=== PATIENT | male | born 1950 | race Caucasian/White ===

== ENCOUNTER 2018-10-15 09:50 | Inpatient (IN) | payer MEDICARE, MEDICAID ==
[~2018-10-15] VITALS: Ht 170.2 cm; Wt 70.8 kg
[~2018-10-15 09:50] MED LIST: ASPI-1718 PO; BENA5TAB13 PO; CARV6.25 PO; FURO-572 PO; LIP80 PO; MIRT30TA PO; NITR0.4T2 SL; OMEP20TC10 PO; TAMS0.4C96 PO
--- NOTE | 2018-10-15 09:53 | NUR ---
PT BIBA ALS TO BED 10
[2018-10-15 09:56] VITALS: BP 110/66
--- NOTE | 2018-10-15 09:59 | NUR ---
Patient being evaluated by physician at bedside.
[2018-10-15] MEDS ORDERED: NACL 0.9% 2,000 ML IV SCH (10:02)
--- NOTE | 2018-10-15 10:15 | NUR ---
PT MOVED TO ER BED 5 WITH EMT JOVAN AT BEDSIDE. [facility] AT BEDSIDE-ALL BELONGING SENT. RT AT BEDSIDE. LAB AT BEDSIDE UA/UDS SENT TO LAB
[2018-10-15] MEDS ORDERED: SPIR50TA PO (10:26)
[2018-10-15] MEDS ORDERED: TRAM50TA1 PO (10:26)
[2018-10-15] MEDS ORDERED: DILT-135 PO (10:26)
[2018-10-15] MEDS ORDERED: QUET100T PO (10:28)
--- NOTE | 2018-10-15 10:45 | NUR ---
PT PURNIMA GUY FROM [facility] FOR ALTERED MENTAL STATUS. PER [facility] PT DID NOT OPEN HIS DOOR THEREBY CALLING JAGDISH FIELDS TO BREAK INTO HIS ROOM AND FOUND WITH A PATCH OF FENTAYL AND AN EMPTY BOTTLE OF SEROQUIL. PT GCS 8, PT OPENS EYES TO PAIN, MOVEMENT TO PAIN, AND NON-VERBAL AT THIS TIME. VSS. ER MD TO SEE PT. HX; HTN RX; FENTANYL, LASIX, ATROVASTATIN, SPIRONOLACTON, DILTIAZEM --
[2018-10-15] MEDS ORDERED: FENT100T TD (10:46)
[2018-10-15 10:59] LABS: APPEARANCE,URINE HAZY (CLEAR); BILIRUBIN,URINE NEGATIVE (NEGATIVE); BLOOD, URINE NEGATIVE (NEGATIVE); COLOR,URINE YELLOW (YELLOW); LEUKOCYTE ESTERASE ,URINE NEGATIVE (NEGATIVE); NITRITE, URINE NEGATIVE (NEGATIVE); PH,URINE 5.5 (5.0-9.0); UGLUCOSE NEGATIVE (NEGATIVE)
[2018-10-15 11:09] LABS: BASOPHILS % (AUTO) 0.2 % (0.0-2.0); EOSINOPHILS % (AUTO) 0.2 % (0.0-4.0); HEMATOCRIT 43.5 % (36-52); HEMOGLOBIN 14.7 g/dL (12.0-18.0); LYMPHOCYTES % (AUTO) 8.6 % (20.5-51.1); MEAN CORPUSCULAR HEMOGLOBIN 30 pg (27-31); MEAN CORPUSCULAR HGB CONC 34 g/dL (33-37); MEAN CORPUSCULAR VOLUME 88.2 fL (80-94); MONOCYTES # (AUTO) 0.6 K/uL (0.8-1.0); MONOCYTES % (AUTO) 5.2 % (1.7-9.3); NEUTROPHILS # (AUTO) 9.8 K/uL (1.8-7.7); NEUTROPHILS % (AUTO) 85.8 % (42.2-75.2); PLATELET COUNT (AUTO) 279 K/uL (140-450); RED BLOOD CELL COUNT(AUTO) 4.93 MIL/uL (4.20-6.10); RED CELL DISTRIBUTION WIDTH 13.8 % (11.6-13.7); WHITE BLOOD COUNT (AUTO) 11.4 K/uL (4.8-10.8)
--- NOTE | 2018-10-15 11:12 | NUR ---
ABG RESULTS GIVEN TO PHYSICIAN REQUESTS PT BE PLACED ON OXYGEN DELIVERY DEVICE.
--- NOTE | 2018-10-15 11:18 | NUR ---
PT AT RADIAOLOGY AT THIS TIME
[2018-10-15 11:25] LABS: BARBITURATE, URINE NEGATIVE ng/ml (NEG <=200); BENZODIAZEPINE, URINE NEGATIVE ng/mL (NEG <=200); CANNABINOID, URINE NEGATIVE ng/mL (NEG <=50); COCAINE, URINE NEGATIVE ng/mL (NEG <=300); OPIATE, URINE NEGATIVE ng/mL (NEG <=2000); PHENCYCLIDINE SCREEN,URINE NEGATIVE ng/mL (NEG <=25)
[2018-10-15 11:27] LABS: PROTHROMBIN TIME 10.4 secs (10.8-13.4)
[2018-10-15 11:34] LABS: ALBUMIN 3.8 g/dL (3.4-5.0); ANION GAP 16.3 (8-16); CARBON DIOXIDE 25.4 mmol/L (21-32); POTASSIUM 3.7 mmol/L (3.5-5.1); TOTAL BILIRUBIN 0.4 mg/dL (0.0-1.0)
[2018-10-15 11:42] LABS: ACETAMINOPHEN < 0.5 ug/ml (10-30)
[2018-10-15] MEDS ORDERED: AZITHROMYCIN 500 MG in DEXTROSE 5% 250 ML IV ONE (11:50)
[2018-10-15] MEDS ORDERED: NACL 0.9% 1,000 ML IV SCH (11:50)
[2018-10-15] MEDS ORDERED: PIPERACILLIN/TAZOBACTAM 3.375 GM in DEXT 5% MINI-BAG PLUS 50 ML IV ONE (11:50)
[2018-10-15 11:54] LABS: ACETONE, SERUM NEGATIVE (NEGATIVE)
[2018-10-15] MEDS ORDERED: PIPERACILLIN/TAZOBACTAM 3.375 GM VIAL IV ONE (12:10)
[2018-10-15] MEDS ORDERED: AZITHROMYCIN 500 MG INJ VIAL IV ONE (12:10)
[2018-10-15] MEDS: IPRATROPIUM 0.02% 0.5 MG/2.5 ML NEBU INH SCH (13:00)
[2018-10-15] MEDS: ALBUTEROL 0.083% 2.5 MG/3 ML NEBU INH SCH (13:00)
[2018-10-15] MEDS ORDERED: ALBUTEROL 0.083% 2.5 MG/3 ML NEBU INH PRN (13:25)
[2018-10-15] MEDS ORDERED: ONDANSETRON 4 MG/2 ML VIAL IVP PRN (13:25)
[2018-10-15] MEDS ORDERED: ACETAMINOPHEN 325 MG TAB PO PRN (13:25)
--- NOTE | 2018-10-15 13:55 | NUR ---
Patient will be admitted to care of [facility]. Admited to ICU VIA GURNEY WITH VSS. Will go to room ICU-6. Belongings list completed. Report to ABIGAIL SERRATO.
[2018-10-15 14:00] VITALS: BP 89/56
[2018-10-15] MEDS: DEXT 5% /NACL 0.9% 1,000 ML IV SCH (14:00)
--- NOTE | 2018-10-15 14:00 | NUR ---
RECEIVED PT TRANSFERRED FROM ED VIA [facility], OBTAINED REPORT FORM AMA YATES AT BEDSIDE, PT IS LETHARGIC, UNABLE TO FOLLOW COMMANDS, PERRL, VSS, FLACC 0, NO S/S OF DISTRESS, CLEAR LUNG SOUNDS ADONIS. ON O2 AT 2L VIA NC, O2 SAT 98%, REGULAR HR, ST ON FOREST FIRE PREVENTION MANAGER, SOFT ABDOMEN WITH ACTIVE BOWEL SOUNDS, INCONTINENT WITH B&B'S AT THIS TIME, SEVERE WEAKNESS TO ALL EXTREMITIES NOTED, SKIN IS INTACT, WARM AND DRY TO TOUCH, IV SITE TO LEFT FOREARM, 22GA, PATENT, RUNNING NS BOLUS. HOB ELEVATED TO 30 DEGREES, POSITION CHANGED FOR COMFORT, SAFETY MEASURES IN PLACE, WILL CONTINUE TO MONITOR.
--- NOTE | 2018-10-15 15:30 | NUR ---
DR. GIVENS CAME IN TO SEE PT AT BEDSIDE, UPDATED PT'S CONDITION TO PT'S POWER VENEER JOINTER KARLY PIMENTEL, WILL FOLLOW UP WITH NEW ORDERS.
--- NOTE | 2018-10-15 15:50 | NUR ---
CALLED [facility] FOR ADVISE, UPDATED PT'S CONDITION, RECOMMENDED TO CONTINUE MONITOR.
[2018-10-15 16:00] VITALS: BP 97/58
--- NOTE | 2018-10-15 16:15 | NUR ---
PT IS ASLEEP IN BED, RESPOND TO PAINFUL STIMULI, BUT UNABLE TO OPEN EYES, OR FOLLOW COMMANDS, NO S/S OF DISTRESS, VSS, FLACC 0. POSITION CHANGED FOR OFF LOAD PRESSURE.
[2018-10-15 18:00] VITALS: BP 94/60
--- NOTE | 2018-10-15 18:00 | NUR ---
NO CHANGE OF CONDITION AT THIS TIME, VSS, FLACC 0, POSITION CHANGED FOR OFF LOAD PRESSURE.
--- NOTE | 2018-10-15 19:10 | NUR ---
REPORT GIVEN TO NEWS CAMERAMAN NURSE FOR CONTINUE OF CARE, PT IS IN STABLE CONDITION AT THIS TIME.
--- NOTE | 2018-10-15 19:11 | NUR ---
RECEIVED REPORT FROM AM SHIFT. PT ALOC. SLEEPING AT THIS TIME. ON 5150 HOLD. NONRESPONSIVE TO VERBAL OR TACTILE STIMULI. LUNG SOUNDS CLEAR. ON NASAL CANNULA 2LPM. SR ON MONITOR. NPO AT THIS TIME. BOWEL SOUNDS HYPOACTIVE. BLADDER NONDISTENDED. L FA 22G. DRESSING INTACT. NO SIGNS OF ACUTE DISTRESS AT THIS TIME. BED IN LOWEST POSITION. SR UP X4. WILL CONTINUE TO MONITOR.
--- NOTE | 2018-10-15 19:30 | NUR ---
DR. HERRERA AT BEDSIDE EVALUATING PT. UPDATED ON PTS CURRENT CONDTION. NEW ORDER OF NARCAN 0.4MG IVP ORDERED. WILL CONTINUE TO FOLLOW UP ANY ADDITIONAL ORDERS.
[2018-10-15 20:00] VITALS: BP 95/62
[2018-10-15] MEDS ORDERED: NALOXONE 0.4 MG/ML VIAL IVP ONE (21:00)
--- NOTE | 2018-10-15 21:20 | NUR ---
RECEIVED A CALL FROM [facility], THEY ARE WANTING AN UPDATE REGARDING THE PT AND RECOMMENDS AN EKG TO BE TAKEN D/T LONG QTC WHILE PT WAS IN ER. WILL FOLLOW-UP WITH THE ATTENDING PHYSICIAN.
--- NOTE | 2018-10-15 21:26 | NUR ---
DR. GIVENS WAS PAGED AT 2124 TO INFORM REGARDING THE RECOMMENDATION OF POISON CONTROL. DR. GIVENS CALLED BACK AT 2126 AND INFORMATION WAS COMMUNICATED. OKAY TO CARRY OUT RECOMMENDATION BY POISON CONTROL PER DR. GIVENS.
--- NOTE | 2018-10-15 21:31 | NUR ---
RT NOTIFIED REGARDING NEW ORDER FOR EKG
--- NOTE | 2018-10-15 21:47 | NUR ---
EKG AT BEDSIDE AT THIS TIME
[2018-10-15 21:49] LABS: CREATINE KINASE MB 1.8 ng/mL (0-3.6)
[2018-10-15 22:00] VITALS: BP 132/68
[2018-10-16] VITALS: BP 112/62
--- NOTE | 2018-10-16 00:06 | NUR ---
PT ASLEEP AT THIS TIME. RESPONDS TO TACTILE STIMULI
[2018-10-16] MEDS: DEXT 5% /NACL 0.9% 1,000 ML IV SCH ×3 (00:54→20:01)
[2018-10-16 02:00] VITALS: BP 92/65
--- NOTE | 2018-10-16 02:44 | NUR ---
PT AWAKE AT THIS TIME. EPISODES OF CONFUSION NOTED
--- NOTE | 2018-10-16 03:37 | NUR ---
PT AWAKE. CONTINUES TO PRESENT CONFUSION AND ALTERED LEVELS OF CONSCIOUSNESS.
[2018-10-16 04:19] VITALS: BP 117/65
--- NOTE | 2018-10-16 05:32 | NUR ---
[facility] PROVIDED AT THIS TIME.
[2018-10-16 06:00] VITALS: BP 122/68
--- NOTE | 2018-10-16 06:08 | NUR ---
LAB AT BEDSIDE AT THIS TIME FOR AM DRAWS
[2018-10-16 06:51] LABS: ALBUMIN 3.1 g/dL (3.4-5.0); ANION GAP 15.2 (8-16); BASOPHILS % (AUTO) 0.2 % (0.0-2.0); CARBON DIOXIDE 25.5 mmol/L (21-32); CREATININE 1.1 mg/dL (0.7-1.3); EOSINOPHILS # (AUTO) 0.1 K/uL (0-0.4); EOSINOPHILS % (AUTO) 1.2 % (0.0-4.0); HEMATOCRIT 40.7 % (36-52); HEMOGLOBIN 13.6 g/dL (12.0-18.0); LYMPHOCYTES % (AUTO) 20.9 % (20.5-51.1); MEAN CORPUSCULAR HEMOGLOBIN 30 pg (27-31); MEAN CORPUSCULAR HGB CONC 34 g/dL (33-37); MEAN CORPUSCULAR VOLUME 88.5 fL (80-94); MONOCYTES # (AUTO) 0.7 K/uL (0.8-1.0); MONOCYTES % (AUTO) 7.7 % (1.7-9.3); NEUTROPHILS # (AUTO) 6.6 K/uL (1.8-7.7); PLATELET COUNT (AUTO) 264 K/uL (140-450); POTASSIUM 3.7 mmol/L (3.5-5.1); RED CELL DISTRIBUTION WIDTH 13.7 % (11.6-13.7); TOTAL BILIRUBIN 0.4 mg/dL (0.0-1.0); WHITE BLOOD COUNT (AUTO) 9.5 K/uL (4.8-10.8)
--- NOTE | 2018-10-16 07:20 | NUR ---
ENDORSED CARE TO INCOMING SHIFT FOR CONTINUITY OF CARE.
--- NOTE | 2018-10-16 07:20 | NUR ---
RECEIVED PT FROM PM NURSE, PT AWAKE,ALERT, ABLE TO ANSWER QUESTIONS. ON 5150 HOLD. LUNG SOUNDS CLEAR. SR ON MONITOR.NO SIGNS OF ACUTE DISTRESS AT THIS TIME. NPO AT THIS TIME. BOWEL SOUNDS HYPOACTIVE. L FA 22G RUNNING D5NS AT 100 MLS/HR. BED IN LOWEST POSITION. SR UP X4. WILL CONTINUE TO MONITOR.
--- NOTE | 2018-10-16 07:30 | NUR ---
PATIENT HAS BEEN SCREENED AND CATEGORIZED HIGH NUTRITION RISK. PATIENT WILL BE SEEN WITHIN 1-2 DAYS OF ADMISSION. 10/16/[address]
[2018-10-16 08:00] VITALS: BP 136/74
--- NOTE | 2018-10-16 09:10 | NUR ---
STEWART FROM [facility] [phone] CALLED, UPDATED PT'S CONDITION. PER STEWART, THIS CASE IS CLOSED.
--- NOTE | 2018-10-16 10:06 | NUR ---
PT'S SISTER WHO HAS THE POWER OF SHUTTLE BUS DRIVER PRESENT TO BEDSIDE, UPDATED PT'S CONDITION.
--- NOTE | 2018-10-16 10:30 | NUR ---
SPOKE TO KARLY. SHE AGREES TO THE PSYCH. RECOMMENDATION THAT PT. NEEDS IN PT. PSYCHIATRIC TREATMENT.
[2018-10-16] MEDS: ASPIRIN 81 MG TAB.CHEW PO SCH (10:41)
[2018-10-16] MEDS: ENOXAPARIN 40 MG/0.4 ML SYR SUBQ SCH (10:43)
[2018-10-16] MEDS ORDERED: PROBIOTIC SCREEN 1 EA MISC MC PRN (10:50)
--- NOTE | 2018-10-16 11:21 | NUR ---
PT IS CONFUSED, TRIED TO GET OUT BED AND REACHED HIS HANDS TO AIR, MUMBLING, UNABLE TO UNDERSTAND PT. REORIENTED PT AND WILL MONITOR PATIENT CLOSELY.
--- NOTE | 2018-10-16 12:15 | NUR ---
PT'S MEDICAL RECORDS FAXED TO [facility].
--- NOTE | 2018-10-16 12:30 | NUR ---
VERIFIED WITH PATRIA FROM [facility] THAT THEY GOT THE MEDICAL RECORDS OF PT.
--- NOTE | 2018-10-16 13:01 | NUR ---
PLEASE REFER TO NUTRITION ASSESSMENT UNDER CARE ACTIVITY FOR ESTIMATED NUTRITIONAL NEEDS. RD RECOMMENDATIONS: 1.RECOMEMND CONTINUE WITH CURRENT DIET ORDER. 2.ONCE PT IS MORE ALERT AND ORIENTED AND IF PO INTAKE <50%, REC ADDING ONS. 3. RD WILL F/U 2-3 DAYS; HIGH RISK. DIANA BROWN, RD
--- NOTE | 2018-10-16 14:33 | NUR ---
pt's family at bedside talking to pt.
--- NOTE | 2018-10-16 15:28 | NUR ---
until now, pt had total urine output 100mls. Addendum: 10/16/18 at 1752 by Enrique Calvillo RN 1100 MLS URINE INSTEAD OF 100 MLS
[2018-10-16 16:00] VITALS: BP 138/84
--- NOTE | 2018-10-16 16:20 | NUR ---
PT TALKING TO HIMSELF , SOUNDS LIKE FIGHTING WITH SOMEONE.
[2018-10-16] MEDS: HYDROcodone/APAP 10/325 MG 1 TAB TAB PO PRN (16:33)
[2018-10-16] MEDS: LORazepam 1 MG TAB PO PRN (16:33)
--- NOTE | 2018-10-16 17:52 | NUR ---
SERVED PT FOOD, FED PT.
--- NOTE | 2018-10-16 19:09 | NUR ---
REPORT GIVEN TO PM NURSE
[2018-10-16 19:18] LABS: CREATINE KINASE MB 2.3 ng/mL (0-3.6)
--- NOTE | 2018-10-16 19:20 | NUR ---
RECEIVED REPORT FROM DAY SHIFT RN. NO ACUTE DISTRESS. PT JACI POINTING @ CEILIING. WILL CONTINUE TO OBSERVE.
--- NOTE | 2018-10-16 19:31 | NUR ---
PT WAS INCREASINGLY BECOMING COMBATIVE TOWARDS STAFF. PT WAS SHOUTING AND CUSSING AT THE NURSES. PT PEED HIMSELF IN BED. NOT WANTING TO COOPERATE WITH STAFF.
--- NOTE | 2018-10-16 19:34 | NUR ---
CALLED [facility] TO EDUAR HERRERA, FOR TONIGHT DR. RIVERS WAS ON-CALL. RECEIVEDA CALL FROM DR. RIVERS AT 1934, INFORMED HIM REGARDING THE CURRENT PT'S CONDITION AND RECEIVED NEW ORDERS.
--- NOTE | 2018-10-16 19:45 | NUR ---
OFFERED TO CHANGE LINENS AND ASSIST WITH [facility]. PT REFUSING @ THIS TIME. PT ALERT TO HIS NAME UNAWARE OF SURROUNDINGS. PT CONTINUES TO MUMBLE TO HIMSELF. DENIES SOB, NO S/S OF N/V/D. PT INCONTINENT, SKIN WARM PINK DRY INTACT. BED LOCKED IN LOWEST POSITION, BED ALARM ON.
[2018-10-16] MEDS ORDERED: MORPHINE SULFATE 2 MG/ML SYR ONE (19:50)
[2018-10-16] MEDS: MORPHINE SULFATE 2 MG/ML SYR IVP PRN (19:57)
--- NOTE | 2018-10-16 20:40 | NUR ---
PAGED DR RIVERS; NOTIFIED PT CONFUSED SWINGING EXTREMITIES TOWARD STAFF, AGITATED RESTLESS. NEW ORDER GIVEN FOR PRN HALDOL.
[2018-10-16] MEDS: HALOPERIDOL IM 5 MG/ML VIAL IVP PRN (20:54)
--- NOTE | 2018-10-16 21:30 | NUR ---
PT HAS EYES CLOSED, NO S/S OF ACUTE DISTRESS. WILL CONTINUE TO OBSERVE.
[2018-10-17 01:00] VITALS: BP 117/79
--- NOTE | 2018-10-17 01:00 | NUR ---
TRANSFERRED PT TO [facility], REPORT GIVEN TO ALISE SERRATO
--- NOTE | 2018-10-17 01:00 | NUR ---
RECEIVED REPORT FROM [facility] ICU NURSE FOR CONTINUITY OF CARE. PATIENT AWAKE AOX1 TO SELF. RESPIRATION EVEN UNLABORED ON ROOM AIR. SKIN IS WARM AND DRY. IV PATENT AND INTACT. VITALS: BP 117/79 SPO2 98% RR 18 P 85 T 98. PATIENT CONDITION STABLE. DENIES PAIN. PLAN OF CARE WAS DISCUSSED. ALL SAFETY MEASURES ARE IN PLACE. BED IS AT LOW POSITION. PATIENT WITH 1 TO 1 SITTER. WILL CONTINUE TO MONITOR.
[2018-10-17] MEDS: HALOPERIDOL IM 5 MG/ML VIAL IVP PRN (01:01)
[2018-10-17] MEDS ORDERED: HALOPERIDOL IM 5 MG/ML VIAL ONE (01:03)
--- NOTE | 2018-10-17 02:09 | NUR ---
CHECKED PATIENT. PATIENT MUMBLING POINTING AT CEILING. NO DISTRESS NOTED. SITTER AT THE BEDSIDE. WILL CONTINUE TO MONITOR
--- NOTE | 2018-10-17 04:00 | NUR ---
CHECKED PATIENT. PATIENT AWAKE CONTINUES TO MUMBLE TO HIMSELF. DENIES PAIN. SITTER AT THE BEDSIDE. WILL CONTINUE TO MONITOR.
--- NOTE | 2018-10-17 05:34 | NUR ---
Still no beds found for placement , will endorsed to AM shift to continue to look for beds.
[2018-10-17] MEDS: IPRATROPIUM 0.02% 0.5 MG/2.5 ML NEBU INH SCH ×3 (07:00→18:49)
[2018-10-17] MEDS: ALBUTEROL 0.083% 2.5 MG/3 ML NEBU INH SCH ×3 (07:00→18:49)
--- NOTE | 2018-10-17 07:20 | NUR ---
ENDORSED PATIENT TO DAY SHIFT NURSE FOR CONTINUITY OF CARE. PATIENT STABLE AT THIS TIME.
--- NOTE | 2018-10-17 07:25 | NUR ---
RECEIVED HAND OFF REPORT FROM PRINTMAKER NURSE. PT IS STABLE IN BED AT THIS TIME WILL REVIEW PLAN OF CARE AND CONTINUE TO MONITOR PT
--- NOTE | 2018-10-17 07:40 | NUR ---
Report given to nurse Gage.
--- NOTE | 2018-10-17 07:42 | NUR ---
RECEIVED BEDSIDE REPORT FROM KANDI SERRATO FOR CONTINUITY OF CARE. PATIENT SLEEPING IN BED WITH LIGHT SNORING. PT IS VERY LETHARGIC. VITALS STABLE. WITHDRAWS TO LIGHT PAINFUL STIMULI. UNABLE TO ASSESS MENTAL STATUS AT THIS TIME. RESPIRATIONS EVEN UNLABORED ON ROOM AIR. COARSE LUNG SOUNDS BILATERALLY. HEART REGULAR RATE AND RHYTHM. PATIENT IN BED WITHOUT ANY BLANKETS COVERING. SKIN INTACT, DRY, AND WARM-EXCEPT FOR LOWER EXTREMITIES ARE COOL TO TOUCH. PEDAL PULSES 1+ BILATERALLY. CAP REFILL 3 SECONDS. BLE SENSATION INTACT. PT WITHDRAWS TO CAP REFILL ASSESSMENT. COVERED PATIENT WITH TWO WARM BLANKETS AND WILL CONTINUE TO MONITOR. IV PATENT AND INTACT, INFUSING IVF PER MD ORDERS. PLAN OF CARE WAS DISCUSSED. ALL SAFETY MEASURES ARE IN PLACE. BED IS AT LOW POSITION. SITTER AT BEDSIDE FOR SUICIDAL PRECAUTIONS. WILL CONTINUE TO MONITOR.
[2018-10-17 08:00] VITALS: BP 130/67
[2018-10-17] MEDS: ASPIRIN 81 MG TAB.CHEW PO SCH (09:16)
[2018-10-17] MEDS: ENOXAPARIN 40 MG/0.4 ML SYR SUBQ SCH (09:21)
[2018-10-17] MEDS: DEXT 5% /NACL 0.9% 1,000 ML IV SCH ×3 (09:30→19:17)
--- NOTE | 2018-10-17 09:30 | NUR ---
PATIENT IS AWAKE NOW. SET UP BREAKFAST TRAY. PT NEEDS ASSISTANCE WITH FEEDING. AOX4 AT THIS MOMENT. ABLE TO STATE NAME, , MONTH & YEAR. KNOWS HE IS AT HOSPITAL ALTHOUGH DOES NOT KNOW NAME OF HOSPITAL. PT ASKED FOR NAME OF THIS HOSPITAL AND I INFORMED HIM THAT THIS IS [facility].
--- NOTE | 2018-10-17 10:25 | NUR ---
POWER OF ENGINE DISPATCHER (KARLY) AT BEDSIDE TO SPEAK WITH PATIENT. DR. GIVENS HAS DISCUSSED PLAN OF CARE WITH POA AT BEDSIDE AND ANSWERED ALL QUESTIONS REGARDING CARE.
--- NOTE | 2018-10-17 12:15 | NUR ---
Pt asleep in bed. Pt opens eyes to name. Lunch tray served & informed him that lunch is ready. Assisted pt to upright sitting position with HOB at 45-65 degree angle. Overbed table positioned over pt. Pt said ok then went back to sleep. Sitter at bedside.
--- NOTE | 2018-10-17 12:32 | NUR ---
PT SITTING UP IN BED, WATCHING TV. NO C/O PAIN OR DISCOMFORT. WILL CONTINUE TO MONITOR.
--- NOTE | 2018-10-17 13:20 | NUR ---
RT AT PT BEDSIDE. RT ADMINISTERING BREATHING TREATMENT TO PT.
--- NOTE | 2018-10-17 13:32 | NUR ---
PATIENT ON ROOM AIR, PULSE OX SAT 94%. SCHEDULED BREATHING TREATMENT ADMINISTERED. TOLERATED TX WELL, NO ADVERSE SIDE EFFECTS. NO RESPIRATORY DISTRESS NOTED. WILL CONTINUE TO MONITOR.
[2018-10-17] MEDS: HYDROcodone/APAP 10/325 MG 1 TAB TAB PO PRN ×3 (14:59→23:54)
--- NOTE | 2018-10-17 14:59 | NUR ---
ADMINISTERED NORCO FOR PT C/O PAIN- SEE PAIN ASSESSMENT.
[2018-10-17 16:00] VITALS: BP 112/51
--- NOTE | 2018-10-17 16:40 | NUR ---
PT SLEEPING IN BED, RESPIRATIONS EVEN AND UNLABORED. ALL SAFETY PRECAUTIONS IN PLACE, WILL CONTINUE TO MONITOR.
--- NOTE | 2018-10-17 18:11 | NUR ---
PER LIAISON PLANNER FROM [facility], PATIENT DOES NOT HAVE MEDICAL AND IS SELF-PAY. THEY WILL NOT ACCEPT PATIENT.
--- NOTE | 2018-10-17 19:19 | NUR ---
ENDORSED POC TO SENIOR ANDROID SOFTWARE ENGINEER REMOTE SENSING RESEARCH SCIENTIST DANETTE. PT IN STABLE CONDITION.
--- NOTE | 2018-10-17 19:20 | NUR ---
Patient's Plan of Care was discussed and reviewed with CITY MAGISTRATE: DANETTE GRAF
--- NOTE | 2018-10-17 19:20 | NUR ---
RECD. RESTING IN BED, AWAKE, A/OX3. RESPIRATION EVEN AND UNLABORED. IV OF D5 NS AT 100 ML/HR INFUSING, LEFT WRIST G20. HAD BM IN BED, CLEANSED AND GOWN AND BEDDINGS CHANGED. REORIENTED TO HOSPITAL SETTING. STATED HE HAS NO PLAN OF OVERDOSING AGAIN, HAVE DONE IT DUE TO HIS DRINKING ALCOHOL, AFTER HE HAD STOPPED FOR FOUR YEARS, JUST DRINK ALCOHOL BECAUSE OF HIS DEPRESSION. PLAN OF CARE FOR THE SHIFT DISCUSSED. VERBALIZED UNDERSTANDING. PAIN IN THE NECK DECREASING /10, WAS MEDICATED BY AM NURSE. REPOSITIONED IN BED FOR COMFORT. WILL CONTINUE TO MONITOR.
[2018-10-17] MEDS: LORazepam 1 MG TAB PO PRN (20:50)
--- NOTE | 2018-10-17 20:50 | NUR ---
WITH ANXIETY MEDICATED WITH ATIVAN 2 MG. PO.
--- NOTE | 2018-10-17 21:02 | NUR ---
Spoke to Duyen at [facility] , they are reviewing the packet , will notify Josseline gut snatcher nurse if placement is found.
--- NOTE | 2018-10-17 21:50 | NUR ---
NO ANXIETY NOTED, RESTING QUIETLY IN BED. IV INFILTRATED, WILL INSERT A NEW IV.
[2018-10-18] VITALS: BP 115/62
--- NOTE | 2018-10-18 | NUR ---
NEW IV LINE INSERTED AT THE LEFT HAND G22.
--- NOTE | 2018-10-18 00:30 | NUR ---
AMBULATED TO THE BR, GAIT WEAK AND SHAKY. HAD BM AND VOIDED. ASSISTED BACK TO BED, SAFETY MAINTAINED.
[2018-10-18] MEDS: IPRATROPIUM 0.02% 0.5 MG/2.5 ML NEBU INH SCH ×4 (00:58→19:47)
[2018-10-18] MEDS: ALBUTEROL 0.083% 2.5 MG/3 ML NEBU INH SCH ×4 (00:58→19:47)
--- NOTE | 2018-10-18 03:18 | NUR ---
STILL AWAKE, NO AGITATION NOTED.
--- NOTE | 2018-10-18 04:20 | NUR ---
AGITATED, IN PAIN /. GET OUT OF BED AND TRIED TO GO AROUND THE BED TRYING TO LOOK FOR HIS EYE GLASSES.WANTS TO GO HOME.
[2018-10-18] MEDS: MORPHINE SULFATE 2 MG/ML SYR IVP PRN ×2 (04:35→23:32)
--- NOTE | 2018-10-18 04:35 | NUR ---
MEDICATED WITH MORPHINE 2 MG. IVP BY AMA MAYORGA.
--- NOTE | 2018-10-18 05:05 | NUR ---
NO AGITATION NOTED, RESTING COMFORTABLY IN BED.
--- NOTE | 2018-10-18 07:00 | NUR ---
RESTLESS, WANTS TO GO HOME. EXPLAINED HE HAS TO WAIT FOR THE DOCTOR TO MAKE ROUNDS. MOST OF THE TIME AWAKE DURING SHIFT. NO SUICIDAL IDEATION NOTED.
--- NOTE | 2018-10-18 07:05 | NUR ---
CONDITION REMAIN STABLE. SAFETY MAINTAINED DURING SHIFT. ENDORSED TO AM SHIFT NURSE FOR CONTINUITY OF CARE.
--- NOTE | 2018-10-18 07:06 | NUR ---
GOT BEDSIDE REPORT FROM AMA SAMANIEGO. PATIENT ON MED SURGE AND STANDARD PRECAUTIONS. PATIENT AAOX2. SACRAL REDNESS. FALL RISK PROTOCOL IN PLACE. SIGNS POSTED, YELLOW GOWN, YELLOW SOCKS. IV ON L HAND 22 G INFUSING D5 1/2 NS AT 100. IV ASYMPTOMATIC PATENT AND INTACT. PATIENT ON 5150 HOLD, 1:1 SITTER AT BEDSIDE. BED IN LOW POSITION, CALL LIGHT WITHIN REACH, SIDE RAILS X 2UP. WILL CONTINUE TO MONITOR. Addendum: 10/18/18 at 0749 by Emily Reeves RN DOCUMENTED UNDER WRONG LOGIN. [facility]
--- NOTE | 2018-10-18 07:58 | NUR ---
AWAKE AND ALERT NO APPARENT SOB NOTED GOOD CHEST RISE PATIENT WITH BREAKFAST TRAY AT THIS TIME DIVISION TRAFFIC SUPERINTENDENT TO ATTEMPT HHN THERAPY AT A LATER TIME
[2018-10-18 08:00] VITALS: BP 136/63
[2018-10-18] MEDS: ENOXAPARIN 40 MG/0.4 ML SYR SUBQ SCH (09:00)
[2018-10-18] MEDS: ASPIRIN 81 MG TAB.CHEW PO SCH (09:25)
--- NOTE | 2018-10-18 09:35 | NUR ---
PAGED DR. JIN REGARDING RENEWAL OF 5150 HOLD. WAITING FOR CALL BACK.
--- NOTE | 2018-10-18 09:40 | NUR ---
RECEIVED CALL FROM RAJI FROM [facility] FAX [phone]. SHE STATED TO FAX THE NEW 2387 HOLD TO THIS FAX NUMBER. INFORMED HER I AM WAITING FOR CALL BACK FROM DR. JIN.
[2018-10-18] MEDS: DEXT 5% /NACL 0.9% 1,000 ML IV SCH ×2 (11:36→23:21)
--- NOTE | 2018-10-18 11:42 | NUR ---
PATIENT SITTING ON SIDE OF BED. NO DISTRESS NOTED, ON ROOM AIR.
--- NOTE | 2018-10-18 13:00 | NUR ---
PATIENT LAYING COMFORTABLY IN BED.
--- NOTE | 2018-10-18 15:15 | NUR ---
5063 FORM FAXED TO [facility] [phone]
[2018-10-18 16:00] VITALS: BP 142/82
--- NOTE | 2018-10-18 16:37 | NUR ---
FRIEND AT BEDSIDE. ON ROOM AIR, NO DISTRESS NOTED. WILL CONTINUE TO MONITOR
--- NOTE | 2018-10-18 19:20 | NUR ---
GAVE REPORT TO AMA TOSCANO. PATIENT ENDORSED IN STABLE CONDITION, SITTER IN PLACE.
[2018-10-18 20:00] VITALS: BP 128/72
--- NOTE | 2018-10-18 20:30 | NUR ---
RECEIVED REPORT FORM SUMMER RN NIGHTSHIFT NURSE DUE TO CHANGE OF ASSIGNMENT, PT SITTING UP IN BED NO S/S OF PAIN OR DISTRESS NOTED. IV SITE 22 GUAGE ON LEFT HAND RUNNING 1/2 NS AT 100. PT ATE ABOUT 50% OF MEAL.
--- NOTE | 2018-10-18 20:30 | NUR ---
PATIENT LEFT TO [facility] [facility]. PATIENT REFUSED TO SIGN D/C PAPERWORK, PUT "UNABLE TO SIGN" TO DOCUMENTATION CHARGE NURSE AWARE, PATIENT LEFT VIA [facility] PATIENT STABLE. Addendum: 10/18/18 at 2042 by Robina Lala RN WRONG PATIENT DISREGARD
--- NOTE | 2018-10-18 20:30 | NUR ---
ENDORSED PATIENT TO ENGINE EMISSION TECHNICIAN NURSE QUE, PATIENT STABLE.
--- NOTE | 2018-10-18 20:43 | NUR ---
At this time there are no vacancy at the following facilities [facility], [facility], [facility] Jumana SERRATO made aware
[2018-10-18] MEDS ORDERED: ESCITALOPRAM 20 MG TAB PO SCH (21:00)
--- NOTE | 2018-10-18 21:00 | NUR ---
PT SITTING IN BED QUIETLY, GIVEN ORDERED LEXAPRO , V/S FOLLOWS T 97.9 P 82 R 18 B/P 128/72 02 95% ON ROOM AIR. PT DENIES PAIN AT THIS TIME.
--- NOTE | 2018-10-18 21:30 | NUR ---
PT ESCORTED TO TO TOILET AND BACK AND THEN SETTLED INTO BED TO SLEEP.
--- NOTE | 2018-10-18 21:44 | NUR ---
PT SLEEPING SOUNDLY IN BED ALL FALLS PRECAUTIONS IN PLACE.
--- NOTE | 2018-10-18 23:40 | NUR ---
PT C/O 02/02 PAIN IN NECK AND BACK, GIVEN MORPHINE 2MG/1ML IVP MORPHINE ORDERED.
[2018-10-19] VITALS: BP 114/63
[2018-10-19] MEDS: IPRATROPIUM 0.02% 0.5 MG/2.5 ML NEBU INH SCH ×4 (00:55→19:28)
[2018-10-19] MEDS: ALBUTEROL 0.083% 2.5 MG/3 ML NEBU INH SCH ×4 (00:56→19:28)
--- NOTE | 2018-10-19 01:00 | NUR ---
PT IN BED, RESPIRATORY AT BEDSIDE GIVEN ORDERED NEB TREATMENT.
--- NOTE | 2018-10-19 02:05 | NUR ---
PT IN BED SLEEPING ALL FALLS PRECAUTIONS IN PLACE. CALL NARAYANAN IN REACH AND D5N/S RUNNING AT 100MLS/HR.
[2018-10-19] MEDS: HYDROcodone/APAP 10/325 MG 1 TAB TAB PO PRN (03:27)
--- NOTE | 2018-10-19 03:43 | NUR ---
PT ASSISTED TO TOILET AND BACK, ALSO HAD BM, LINENS CHANGED, PT REQUEST NORCO FOR MODERATE PAIN IN BACK AND NECK. ALL OTHER REQUESTS ATTENDED BY STAFF.
--- NOTE | 2018-10-19 05:30 | NUR ---
PT ROOM CHANGED FROM 108A TO 109A WITH BELONGINGS FROM ROOM 108A. PT V/S FOLLOWS T 98.9 P 67 R 18 B/P 117/57 02 90% ON ROOM AIR. PT RECEIVED CALL FROM KARLY PARMAR. SHE SAID SHE WILL BE HERE IN LATE MORNING. PT ESCORTED TO TOILET AND BACK, ALL FALLS PRECAUTIONS IN PLACE.
--- NOTE | 2018-10-19 05:55 | NUR ---
IV SITE ON LEFT HAND 22GUAGE IS NOTED A LITTLE PUFFY AND PT C/O OF PAIN. IV SITE TAKEN OUT AND NEW SITE PROVIDED TO RIGHT HAND 22G. IV SITE INTACT AND FLUSHED PATENT. IV FLUIDS ATTACHED AND RUNNING D5NS AT 100MLS/HR.
[2018-10-19 05:59] VITALS: BP 117/57
--- NOTE | 2018-10-19 07:26 | NUR ---
PT ESCORTED TO TOILET AND BACK THEN SETTLED INTO BED, RT GIVING PT NEB TREATMENT AT BEDSIDE GAVE REPORT TO NY SERRATO DAYSHIFT NURSE AT BEDSIDE, PT IN STABLE CONDITION.
--- NOTE | 2018-10-19 07:30 | NUR ---
RECEIVED PT FROM SCHOOL BUS MECHANIC NURSE, QUE, PT IS AWAKE AND IS HAVING A BREATHING TX NOW, RT ON THE BEDSIDE, 1:1 SITTER ON THE BEDSIDE WELL, PT HAS AN IV LINE ON THE RT HAND G.22 WITH D5NS INFUSING AT 100ML/HR, INTACT AND PATENT, PT DENIES ANY PAIN AND NO FEELING OF ANXIETY, NO SIGN OF DISTRESS NOTED AND WILL MONITOR PT.
--- NOTE | 2018-10-19 07:45 | NUR ---
PT IS AWAKE AND VITAL SIGNS CHECKED AND RESULT IS BP IS118/61, PULSE IS 79, O2 SATURATION IS 95%, TEMPERATURE IS 98.2 AND RESPIRATION IS 16/MIN, PT DENIES PAIN AND WAS ASSISTED TO THE BATHROOM NOW AND MADE A BOWEL MOVEMENT, 1: SITTER ON THE BEDSIDE. WILL MONITOR PT.
[2018-10-19 08:00] VITALS: BP 118/61
[2018-10-19] MEDS: ASPIRIN 81 MG TAB.CHEW PO SCH (08:37)
[2018-10-19] MEDS: ESCITALOPRAM 20 MG TAB PO SCH (08:37)
[2018-10-19] MEDS: DEXT 5% /NACL 0.9% 1,000 ML IV SCH (08:40)
[2018-10-19] MEDS: ENOXAPARIN 40 MG/0.4 ML SYR SUBQ SCH (08:40)
--- NOTE | 2018-10-19 09:45 | NUR ---
PT'S IVF WAS DISCONTINUED NOW PER DR. LIU WHO CAME TO THE PT'S ROOM AND ASSESSED PT.
--- NOTE | 2018-10-19 10:17 | NUR ---
Supervisor Scenic Arts Note: Per Shahida from [facility] ([place] , they are not accepting patients with Medicare coverage or with Medicare managed health insurance plans ([employer] ) at this time, unable to accept patient.
--- NOTE | 2018-10-19 10:20 | NUR ---
PT' CAREGIVER IS IN THE ROOM NOW AND TALKING TO PT, CAREGIVER SPOKE TO CHARGE NURSEBRIDGETT REGARDING THE PT.
--- NOTE | 2018-10-19 11:11 | NUR ---
INA FROM [facility] CALLED AND INFORMED THAT PT' DOSE NOT HAVE ANY BELONGINGS WITH THEM AND IT WAS NOTED THAT ON 10-16-18 THE PT'S BELONGINGS WERE GIVEN TO THE FRIEND, KARLY LOREN.
--- NOTE | 2018-10-19 12:47 | NUR ---
10/19/18 RD FOLLOW UP COMPLETED PLEASE REFER TO NUTRITION ASSESSMENT UNDER CARE ACTIVITY FOR ESTIMATED NUTRITIONAL NEEDS. 1. RECOMMEND CARDIAC DIET TOLERATED 2. RD TO FOLLOW-UP 5-7 DAYS, LOW RISK KEVEN MUJICA RD
--- NOTE | 2018-10-19 13:25 | NUR ---
PT IS HAVING BREATHING TREATMENT NOW AND TOLERATING IT, RT ON THE BEDSIDE. 1:1 SITTER ON BEDSIDE. WILL MONITOR PT.
--- NOTE | 2018-10-19 13:42 | NUR ---
KEVEN FROM [facility] CALLED AN RECOMMENDED A CARDIAC DIET FOR THE PT SINCE PT HAS A HX OF CHF, ACKNOWLEDGED AND WILL INFORM
[2018-10-19 16:00] VITALS: BP 129/80
--- NOTE | 2018-10-19 16:15 | NUR ---
PT ASKED FOR A SPONGE BATH AND WAS ASSISTED, BED LINENS WERE CHANGED AND PT WAS MADE COMFORTABLE ON THE BED, VITAL SIGNS TAKEN AND IS WITHIN NORMAL LIMIT. 1:1 SITTER ON THE BEDSIDE.
--- NOTE | 2018-10-19 18:36 | NUR ---
PT IS RESTING COMFORTABLE ON THE BED NOW, 1:1 SITTER ON THE BEDSIDE, NO SIGN OF DISTRESS NOTED AND WILL MONITOR PT.
--- NOTE | 2018-10-19 19:35 | NUR ---
ENDORSED PT TO STARS ANALYTICAL LEAD NURSE FOR CONTINUITY OF CARE, PT IS AWAKE SEATED QUIETLY ON THE BED.
--- NOTE | 2018-10-19 19:36 | NUR ---
RECEIVED REPORT FROM DAY SHIFT AMA ALEJANDRA FOR CONTINUITY OF CARE. PT IS A/OX4, ON ROOM AIR. PT ABLE TO MAKE NEEDS KNOWN, AND ABLE TO FOLLOW COMMANDS. PT WITH FALL PRECAUTIONS IN PLACE FOR SLIGHTLY UNSTEADY GAIT. PT SKIN IS INTACT. PT HAS 22G IV TO LEFT WRIST, ASYMPTOMATIC AND INTACT. DISCUSSED PLAN OF CARE WITH PT, PT VERBALIZED UNDERSTANDING. VITAL SIGNS WITHIN NORMAL LIMITS. PT STABLE, DENIES PAIN, NO SIGNS OF DISTRESS NOTED AT THIS TIME. PT POSITIONED FOR COMFORT. BED IN LOWEST POSITION, BED ALARM ON. WILL CONTINUE TO MONITOR. Addendum: 10/19/18 at 2053 by Erin Astudillo RN 22G IV TO RIGHT WRIST/HAND, NOT LEFT WRIST.
[2018-10-19] MEDS: MORPHINE SULFATE 2 MG/ML SYR IVP PRN (20:27)
--- NOTE | 2018-10-19 20:30 | NUR ---
ADMINISTERED MORPHINE FOR 8/10 ABDOMINAL PAIN, PT TOLERATED WELL. BED IN LOWEST POSITION, BED ALARM ON. WILL CONTINUE TO MONITOR.
--- NOTE | 2018-10-19 21:31 | NUR ---
Spoke to Burak Harkins , no vacancy at this time, will notify charge nurse if placement is found.
[2018-10-20] VITALS: BP 137/80
--- NOTE | 2018-10-20 | NUR ---
VITAL SIGNS WITHIN NORMAL LIMITS. PT STABLE, DENIES PAIN, NO SIGNS OF DISTRESS NOTED AT THIS TIME. PT POSITIONED FOR COMFORT. BED IN LOWEST POSITION, BED ALARM ON. WILL CONTINUE TO MONITOR.
[2018-10-20] MEDS: IPRATROPIUM 0.02% 0.5 MG/2.5 ML NEBU INH SCH ×3 (01:09→13:11)
[2018-10-20] MEDS: ALBUTEROL 0.083% 2.5 MG/3 ML NEBU INH SCH ×3 (01:10→13:11)
[2018-10-20] MEDS: MORPHINE SULFATE 2 MG/ML SYR IVP PRN ×3 (01:29→11:59)
--- NOTE | 2018-10-20 02:30 | NUR ---
PT STABLE, DENIES PAIN, NO SIGNS OF DISTRESS NOTED AT THIS TIME. PT POSITIONED FOR COMFORT. BED IN LOWEST POSITION, BED ALARM ON. WILL CONTINUE TO MONITOR.
--- NOTE | 2018-10-20 04:16 | NUR ---
PT GOT UP TO USE RESTROOM AGAIN.
--- NOTE | 2018-10-20 06:40 | NUR ---
PT RESTING IN BED WITHOUT ANY SIGNS OF DISTRESS NOTED AT THIS TIME. BED IN LOWEST POSITION, BED ALARM ON. WILL CONTINUE TO MONITOR.
--- NOTE | 2018-10-20 07:15 | NUR ---
RECEIVED PT REPORT FROM TECHNOLOGY SPECIALIST RN AT BEDSIDE. PT IS AAOX4, NO S/S OF DISTRESS ON ROOM AIR. PT ABLE TO MAKE NEEDS KNOWN, AND ABLE TO FOLLOW COMMANDS. PT WITH FALL PRECAUTIONS IN PLACE FOR SLIGHTLY UNSTEADY GAIT. PT SKIN IS INTACT. IV CATH 22G TO RIGHT WRIST, PATENT AND INTACT, SL. DISCUSSED PLAN OF CARE WITH PT, PT VERBALIZED UNDERSTANDING. C/O NECK MUSCLE STIFFNESS, WILL MEDICATE WITH PRN PAIN MED. BED IN LOWEST POSITION, BED ALARM ON. SITTER IN PLACE FOR CONTINUOUS MONITORING.
[2018-10-20 08:00] VITALS: BP 143/89
[2018-10-20] MEDS: ESCITALOPRAM 20 MG TAB PO SCH (08:44)
[2018-10-20] MEDS: ASPIRIN 81 MG TAB.CHEW PO SCH (08:45)
[2018-10-20] MEDS: ENOXAPARIN 40 MG/0.4 ML SYR SUBQ SCH (08:47)
--- NOTE | 2018-10-20 09:07 | NUR ---
Chart faxed to the following facilities for review: [facility]. The following facilities were contacted but no available beds at this time: [facility], [place], [facility] and [facility]. [facility] not contracted with patient insurance.
--- NOTE | 2018-10-20 09:40 | NUR ---
DR LIU CALLED BACK, MADE MD AWARE PT CRAVING FOR CIGARETTES. PT SMOKE 1 PACK A DAY. 21MG NICOTINE PATCH QD ORDERED.
[2018-10-20] MEDS ORDERED: NICOTINE TRANSD SYS 21 MG/24 HR PATCH TD SCH (10:00)
--- NOTE | 2018-10-20 10:47 | NUR ---
CM NOTE PER JERO OF [place], NO BEDS AVAILABLE AT THIS TIME BUT THEY ARE ANTICIPATING POSSIBLE DISCHARGES TODAY. PER ALEX OF [facility], NO BEDS AVAILABLE AT THIS TIME BUT THEY ARE ANTICIPATING POSSIBLE DISCHARGES TODAY. PER LISET OF [facility], NO BEDS AVAILABLE AT THIS TIME BUT THEY ARE ANTICIPATING POSSIBLE DISCHARGES TODAY. PER BORIS OF [facility], NO BEDS AVAILABLE AT THIS TIME. PER KRISTOPHER OF [facility], NO BEDS AVAILABLE AT THIS TIME.
--- NOTE | 2018-10-20 12:24 | NUR ---
Packet faxed to Garth at [facility] for review.
--- NOTE | 2018-10-20 12:41 | NUR ---
[facility]
[2018-10-20 16:00] VITALS: BP 118/85
--- NOTE | 2018-10-20 16:00 | NUR ---
PT HAS BEEN EVALUATED BY PSYCHIATRIST DR OLIVARES. PT IS NO LONGER [id number]. [address] LIU, MADE HIM AWARE, DR LIU IS OK TO DC PT TODAY. ASKED DR LIU TO PUT RX FOR LEXAPRO 10MG DAILY FOR [address] OLIVARES. MADE DR LIU AWARE PT PREFERS [facility]. DR LIU STATED HE WILL CALL THEM. ALSO, WENT OVER DISCHARGE HOME MEDICATIONS WITH DR LIU. Addendum: 10/20/18 at 1757 by Joel Stokes RN ALSO, ASKED DR LIU IF HE WILL GIVE PT RX FOR PAIN. DR LIU SAID PT CAN TAKE OVER THE COUNTER PAIN MEDS AND NEEDS TO FOLLOW UP WITH HIS PCP.
[2018-10-20] MEDS: HYDROcodone/APAP 10/325 MG 1 TAB TAB PO PRN (16:33)
--- NOTE | 2018-10-20 16:40 | NUR ---
CALLED [facility], LEFT A MESSAGE ABOUT DR OLIVARES DC [phone] HOLD, SW/CW CONSULT FOR OUT PT MENTAL HEALTH. ASKED IF SHE WANTS TO TALK TO THE PT.
[2018-10-20] MEDS ORDERED: ESCI10TA PO (16:57)
--- NOTE | 2018-10-20 17:41 | NUR ---
PROVIDED RESOURCE PACKET FOR MENTAL HEALTH TO PT AND MADE PT AWARE HE NEEDS TO FOLLOW UP WITH OUTPATIENT MENTAL HEALTH SERVICE WITHIN 1-2 WKS[address] PROVIDED PT WITH [address] TIRADODAVIN [phone] IN CASE HE WANTS TO FOLLOW UP WITH HIM.
--- NOTE | 2018-10-20 18:14 | NUR ---
EDUCATED ON DISEASE PROCESS, ABN S/SX, WHEN TO GO TO THE ER, EDUCATED ON THE IMPORTANCE TO FOLLOW UP W PSYCH, GAVE HIM PSYCH RESOURCES, EDUCATED ON FOLLOW UP W PCP, EDUCATED ON MEDS AND THAT IT IS SENT TO HIS PHARMACY. PATIENT SAID PNA AND FLU UP TO DATE. 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 IV REMOVED, TIP INTACT. PATIENT WILL CHANGE AND WAIT FOR HIS RIDE.
--- NOTE | 2018-10-20 19:05 | NUR ---
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
[2018-10-21] MEDS ORDERED: NICOTINE TRANSD SYS 21 MG/24 HR PATCH TD SCH (09:00)
== END 2018-10-20 19:10 | disposition home health service (06) | DRG 917 ==
LOC: MED 09:50 → MIC 13:33 → MTU 10-17 00:55
PROVIDERS: ADMIT Internal Medicine; ATTEND Internal Medicine
DX: T43.592A Poisoning by other antipsychotics and neuroleptics, intentional self-harm, initial encounter (principal); G92 Toxic encephalopathy; E87.3 Alkalosis; T40.4X2A Poisoning by other synthetic narcotics, intentional self-harm, initial encounter; E78.5 Hyperlipidemia, unspecified; F32.9 Major depressive disorder, single episode, unspecified; I11.0 Hypertensive heart disease with heart failure; I48.2 Chronic atrial fibrillation; K21.9 Gastro-esophageal reflux disease without esophagitis; N40.0 Benign prostatic hyperplasia without lower urinary tract symptoms; I50.9 Heart failure, unspecified; Y92.89 Other specified places as the place of occurrence of the external cause; Z88.8 Allergy status to other drugs, medicaments and biological substances; Z79.899 Other long term (current) drug therapy; Z79.82 Long term (current) use of aspirin
CPT/HCPCS: 36415; 36600; 70450; 71045; 80053; 80305; 81003; 82009; 82140; 82550; 82553; 82803; 82948; 83605; 83735; 83880; 84100; 84484; 85025; 85610; 85730; 87040; 87081; 87086; 93005; 94640; 96361; 96365; 96367; 99285; G0480; G0482; J0456; J1630; J1650; J2270; J2310; J2543; J7042; J7613; J7644; Q0092

== ENCOUNTER 2021-06-21 18:33 | Emergency (ER) | payer MEDICARE, MEDICAID ==
[~2021-06-21] VITALS: Ht 175.3 cm; Wt 82.6 kg
[~2021-06-21 18:33] MED LIST changes: -ASPI-1718 PO; +ASPI-1822 PO; +DILT-135 PO; +ESCI10TA PO; +MIRT-92 PO; -MIRT30TA PO; -NITR0.4T2 SL; +QUET100T PO; +SPIR50TA PO; +TRAM50TA1 PO
[2021-06-21 18:36] VITALS: BP 110/68
--- NOTE | 2021-06-21 18:42 | NUR ---
BIBA TO BED 09
--- NOTE | 2021-06-21 18:50 | NUR ---
70 Y/O MALE BIBA FROM [place] C/O FALL X45 MIN AGO. PT BROUGHT IN BY EMS IN C-COLLAR. PT REPORTS HE WAS USING THE RESTROOM WHERE HE FELL. PT AMBULATES WITH WHEELCHAIR. PT REPORTS HITTING HIS HEAD BUT DENIES LOC. SKIN IS INTACT. PT IS NOW C/O 8/10 NECK PAIN THAT HE DESCRIBES SHARP/STABBING AND NONRADIATING. PT DENIES NUMBNESS/TINGLING IN ALL EXTREMETIES, FULL SENSATION. PT ALSO C/O LOWER BACK PAIN THAT HE REPORTS CHRONIC. PT AWAKE, ALERT AND ORIENTED. PT LAYING IN BED WITH EVEN AND UNLABORED RESPIRATIONS, FALL PRECAUTIONS IN PLACE. BED IN LOWEST POSITION, BRAKES LOCKED, X2 SIDERAILS UP. MEDHX: HTN, HLD, CARDIOMYOPATHY, STENT NKDA
--- NOTE | 2021-06-21 19:05 | NUR ---
PA SOUSA AT BEDSIDE EVALUATING PT
[2021-06-21] MEDS ORDERED: HYDROcodone/APAP 5/325 MG 1 TAB TAB PO ONE (19:10)
--- NOTE | 2021-06-21 19:26 | NUR ---
REPORT GIVEN TO JUDY SERRATO, TRANSFER OF CARE AT THIS TIME
--- NOTE | 2021-06-21 19:30 | NUR ---
RECEIVED IN BED 9. IS AWAKE AND ALERT. C-COLLAR IN PLACE. PT STATES PAIN IS BETTER
[2021-06-21] MEDS ORDERED: ACET-10509 PO (20:01)
[2021-06-21] MEDS ORDERED: HYDROcodone/APAP 5/325 MG 1 TAB TAB ONE (20:19)
[2021-06-21 20:58] VITALS: BP 110/68
--- NOTE | 2021-06-21 20:58 | NUR ---
Patient discharged with v/s stable. Written and verbal after care instructions given and explained. Patient verbalized understanding. Wheel Chair Assisted with to snf. All questions addressed prior to discharge. Advised to follow up with PMD.
== END 2021-06-21 20:58 | disposition home or self-care (01) ==
LOC: MED 18:33
DX: S16.1XXA Strain of muscle, fascia and tendon at neck level, initial encounter (principal); S39.012A Strain of muscle, fascia and tendon of lower back, initial encounter; S09.90XA Unspecified injury of head, initial encounter; I10 Essential (primary) hypertension; E78.5 Hyperlipidemia, unspecified; Z79.82 Long term (current) use of aspirin; Z79.899 Other long term (current) drug therapy; W18.30XA Fall on same level, unspecified, initial encounter; Y93.89 Activity, other specified; Y92.89 Other specified places as the place of occurrence of the external cause; Y99.8 Other external cause status
CPT/HCPCS: 70450; 72100; 72125; 99285

== ENCOUNTER 2021-12-27 15:13 | Emergency (ER) | payer MEDICARE, MEDICAID ==
[~2021-12-27] VITALS: Ht 172.7 cm; Wt 74.8 kg
[~2021-12-27 15:13] MED LIST changes: +ACET-1182 PO; +AMLO2.5T PO; +ATOR20TA PO; +BENA20TA PO; -BENA5TAB13 PO; +BENZ-315 PO; +CARV12.5 PO; -CARV6.25 PO; -DILT-135 PO; -ESCI10TA PO; -FURO-572 PO; -LIP80 PO; -MIRT-92 PO; +NITR12SP3 SL; +OMEP-303 PO; -OMEP20TC10 PO; -QUET100T PO; +RIFA300C49 PO; -SPIR50TA PO; +TAMS0.4C97 PO; -TRAM50TA1 PO; +[UNRECOGNIZED DRUG - CODE] IV; +[UNRECOGNIZED DRUG - CODE] PO
[2021-12-27 15:21] VITALS: BP 147/80
--- NOTE | 2021-12-27 15:26 | NUR ---
AT PT BEDSIDE
--- NOTE | 2021-12-27 15:30 | NUR ---
71 Y/O MALE BIBA C/O CATHETER NOT DRAINING SINCE YESTERDAY. PT APPERS VERY UNCOMFORTABLE. PT STATES HE HAS ALSO HAD DIARRHEA FOR A COUPLE OF MONTHS. PT DENIES ANY ALLEVIATING OR EXACERBATING FACTORS. PT DENIES FEVER OR CHILLS, NAUSEA, VOMITING. PT ALERT AND ORIENTEDX4. BED LOCKED IN LOWEST POSITION. BED RAIL X1. PMH: HTN, PROSTATE CA
--- NOTE | 2021-12-27 15:30 | NUR ---
# 16 FR Xie catheter with ml utilizing sterile technique. Immediate return of 300ml YELLOW urine noted /SEVERAL BLOOD CLOTS. Bedside drainage bag placed below level of bladder. Urine sample collected and sent to lab. Pt tolerated procedure WELL.
--- NOTE | 2021-12-27 15:44 | NUR ---
RAD at bedside
[2021-12-27 16:43] LABS: APPEARANCE,URINE SL CLOUDY (CLEAR); BILIRUBIN,URINE NEGATIVE (NEGATIVE); BLOOD, URINE 3+ (NEGATIVE); COLOR,URINE YELLOW (YELLOW); LEUKOCYTE ESTERASE ,URINE TRACE (NEGATIVE); NITRITE, URINE POSITIVE (NEGATIVE); PH,URINE 8.5 (5.0-9.0); UGLUCOSE NEGATIVE (NEGATIVE)
[2021-12-27 16:44] LABS: BASOPHILS % (AUTO) 0.3 % (0.0-2.0); EOSINOPHILS # (AUTO) 0.1 K/uL (0-0.4); HEMATOCRIT 39.4 % (36-52); HEMOGLOBIN 12.9 g/dL (12.0-18.0); LYMPHOCYTES # (AUTO) 1.5 K/uL (2.0-11.5); LYMPHOCYTES % (AUTO) 10.8 % (20.5-51.1); MEAN CORPUSCULAR HEMOGLOBIN 27 pg (27-31); MEAN CORPUSCULAR HGB CONC 33 g/dL (33-37); MEAN CORPUSCULAR VOLUME 83.6 fL (80-94); MONOCYTES # (AUTO) 0.6 K/uL (0.8-1.0); MONOCYTES % (AUTO) 4.8 % (1.7-9.3); NEUTROPHILS # (AUTO) 11.2 K/uL (1.8-7.7); NEUTROPHILS % (AUTO) 83.1 % (42.2-75.2); PLATELET COUNT (AUTO) 223 K/uL (140-450); RED BLOOD CELL COUNT(AUTO) 4.71 MIL/uL (4.20-6.10); WHITE BLOOD COUNT (AUTO) 13.5 K/uL (4.8-10.8)
[2021-12-27 16:48] LABS: ALBUMIN 3.7 g/dL (3.4-5.0); ANION GAP 13.2 (8-16); ASPARTATE AMINOTRANSFERASE 17 U/L (15-37); CARBON DIOXIDE 26.4 mmol/L (21-32); CHLORIDE 104 mmol/L (98-107); CREATININE 1.4 mg/dL (0.6-1.3); GLUCOSE 131 mg/dL (74-106); POTASSIUM 4.6 mmol/L (3.5-5.1); SODIUM SERUM 139 mmol/L (136-145); TOTAL BILIRUBIN 0.3 mg/dL (0.0-1.0); UREA NITROGEN, BLOOD 29 mg/dL (7-18)
[2021-12-27 16:57] LABS: RBC,URINE 50-80 /HPF (0-5)
[2021-12-27] MEDS ORDERED: cefTRIAXone 1,000 MG VIAL ONE (18:55)
[2021-12-27] MEDS ORDERED: SULF-59 PO (19:01)
--- NOTE | 2021-12-27 19:22 | NUR ---
Pt report given to AMA BRADSHAW. Transfer of care at this time.
[2021-12-27 20:26] VITALS: BP 147/80
--- NOTE | 2021-12-27 20:40 | NUR ---
Patient discharged with v/s stable. Written and verbal after care instructions given and explained. Patient alert, oriented and verbalized understanding of instructions. Ambulatory with to detention via uber. All questions addressed prior to discharge. ID band removed. Patient advised to follow up with PMD. Rx of Bactrium DS given. Patient educated on indication of medication including possible reaction and side effects. Opportunity to ask questions provided and answered.
== END 2021-12-27 20:26 | disposition home or self-care (01) ==
LOC: MED 15:13
DX: T83.098A Other mechanical complication of other urinary catheter, initial encounter (principal); N39.0 Urinary tract infection, site not specified; N40.0 Benign prostatic hyperplasia without lower urinary tract symptoms; N28.1 Cyst of kidney, acquired; I10 Essential (primary) hypertension; I25.10 Atherosclerotic heart disease of native coronary artery without angina pectoris; Z46.6 Encounter for fitting and adjustment of urinary device; Z90.49 Acquired absence of other specified parts of digestive tract; Z87.891 Personal history of nicotine dependence
CPT/HCPCS: 36415; 51702; 71045; 74176; 80053; 81001; 83880; 84484; 85025; 87040; 87086; 93005; 96365; 99285; J0696; Q0092

== ENCOUNTER 2022-01-28 10:16 | Inpatient (IN) | payer MEDICARE, MEDICAID ==
[~2022-01-28] VITALS: Ht 175.3 cm; Wt 89.9 kg
[2022-01-28 10:16] VITALS: BP 138/88
[~2022-01-28 10:16] MED LIST changes: +SULF-59 PO
--- NOTE | 2022-01-28 10:16 | NUR ---
PT BIB [facility] C/O LOW ABD PAIN S/P CLOGGED CRAWFORD X 2DAYS. PT HX OF COPD, CHF, kidney disease, pacemaker, BPH, chronic Crawford catheterPT DENIES N/V/D; SKIN IS INTACT, PINK/WARM/DRY; AAOX4, PERRL, WITH EVEN AND STEADY GAIT; LUNGS CLEAR BL, BREATHING LABORED; HR EVEN AND REGULAR, BL PERIPHERAL PULSES PRESENT; BS ACTIVE X4-TENDERNESS ON PALPATION. PT DENIES ANY FEVER, CP, COUGH AT THIS TIME; PT STATES 6/10 PAIN AT THIS TIME; VSS; PATIENT POSITIONED FOR COMFORT; HOB ELEVATED; BEDRAILS UP X2; BED DOWN.
--- NOTE | 2022-01-28 10:30 | NUR ---
71YO MALE PT BIBA FROM [facility] C/O CRAMPING 6/10 LOWER ABDOMINAL PAIN DUE TO CLOGGED CRAWFORD X2 DAYS. PT REPORTS DECREASE IN URINE OUTPUT ALONG WITH 6/10 SUPERPUBIC TENDERNESS AND PENILE PAIN. PT STATES CRAWFORD WAS LAST CHANGED [id number] AGO. PT PRESENTS REDDENED AROUND URETHRA AND WITH RATH AROUND PENILE AREA. PT ABDOMEN FIRM , NON DISTENDED, ACTIVE X4. PT STATES TAKING TYLENOL FOR PAIN , HAD NO RELIEF. UPON ARRIVAL PT TACHY AND STATES SOB DUE TO PAIN . PT PUT ON MONITOR , P 100 AND O2 98% ROOM AIR. PT AAOX4. HX: COPD, CHF, KIDNEY DISEASE, PACEMAKER W/ STENTS NKA
[2022-01-28 11:57] LABS: BASOPHILS # (AUTO) 0.1 K/uL (0.00-0.22); BASOPHILS % (AUTO) 0.5 % (0.0-2.0); EOSINOPHILS # (AUTO) 0.1 K/uL (0-0.4); EOSINOPHILS % (AUTO) 0.8 % (0.0-4.0); HEMATOCRIT 40.3 % (36-52); HEMOGLOBIN 13.2 g/dL (12.0-18.0); LYMPHOCYTES % (AUTO) 14.6 % (20.5-51.1); MEAN CORPUSCULAR HEMOGLOBIN 28 pg (27-31); MEAN CORPUSCULAR HGB CONC 33 g/dL (33-37); MEAN CORPUSCULAR VOLUME 85.2 fL (80-94); MONOCYTES % (AUTO) 7.6 % (1.7-9.3); NEUTROPHILS # (AUTO) 10.3 K/uL (1.8-7.7); NEUTROPHILS % (AUTO) 76.5 % (42.2-75.2); PLATELET COUNT (AUTO) 230 K/uL (140-450); RED BLOOD CELL COUNT(AUTO) 4.73 MIL/uL (4.20-6.10); RED CELL DISTRIBUTION WIDTH 16.4 % (11.6-13.7); WHITE BLOOD COUNT (AUTO) 13.4 K/uL (4.8-10.8)
[2022-01-28 12:11] LABS: ALBUMIN 3.8 g/dL (3.4-5.0); ANION GAP 13.3 (8-16); ASPARTATE AMINOTRANSFERASE 20 U/L (15-37); CARBON DIOXIDE 27.8 mmol/L (21-32); CHLORIDE 102 mmol/L (98-107); CREATININE 1.3 mg/dL (0.6-1.3); GLUCOSE 123 mg/dL (74-106); POTASSIUM 4.1 mmol/L (3.5-5.1); SODIUM SERUM 139 mmol/L (136-145); TOTAL BILIRUBIN 0.5 mg/dL (0.0-1.0); UREA NITROGEN, BLOOD 27 mg/dL (7-18)
[2022-01-28] MEDS ORDERED: cephALEXin 500 MG CAP PO ONE (12:15)
[2022-01-28] MEDS ORDERED: NACL 0.9% 1,000 ML IV ONE (12:15)
[2022-01-28 12:31] LABS: APPEARANCE,URINE CLEAR (CLEAR); BILIRUBIN,URINE NEGATIVE (NEGATIVE); BLOOD, URINE 2+ (NEGATIVE); COLOR,URINE YELLOW (YELLOW); LEUKOCYTE ESTERASE ,URINE 2+ (NEGATIVE); NITRITE, URINE POSITIVE (NEGATIVE); PH,URINE 8.5 (5.0-9.0); UGLUCOSE NEGATIVE (NEGATIVE)
[2022-01-28 12:59] LABS: RBC,URINE 11-20 (MOD) /HPF (0-5)
[2022-01-28] MEDS ORDERED: cefTRIAXone 1,000 MG VIAL ONE (13:04)
[2022-01-28] MEDS ORDERED: HYDROcodone/APAP 5/325 MG 1 TAB TAB PO PRN (14:25)
[2022-01-28] MEDS ORDERED: MAG SULF 2000 MG/WATER PREMIX 50 ML IV PRN (14:25)
[2022-01-28] MEDS ORDERED: MAGNESIUM OXIDE 400 MG TAB PO PRN (14:25)
[2022-01-28] MEDS ORDERED: POTASSIUM CHLORIDE 10 MEQ TABER PO PRN (14:25)
[2022-01-28] MEDS ORDERED: KCL 20 MEQ/WATER INJ PREMIX 200 ML IV PRN (14:25)
[2022-01-28] MEDS ORDERED: ACETAMINOPHEN 325 MG TAB PO PRN (14:25)
[2022-01-28] MEDS: NACL 0.9% 1,000 ML IV SCH (14:52)
--- NOTE | 2022-01-28 15:17 | NUR ---
Pt transferred to Med/Surg via BED WITH NURSE .
--- NOTE | 2022-01-28 19:20 | NUR ---
RECEIVED BEDSIDE REPORT FROM DAY SHIFT AMA PINO. PT IS AWAKE AAOX4 ON RA. PT DENIES ANY PAIN AND HAS NO COMPLAINS. PT HAS RIGHT HAND 20 GAUGE WITH NS 80 ML/HR. PT HAS FC DRAINING CLEAR LIGHT TIFF URINE. PLAN OF CARE DISCUSSED. CALL LIGHT WITHIN REACH. ALL SAFETY MEASURES TAKEN. WILL CONTINUE TO MONITOR THE PT.
[2022-01-28 20:00] VITALS: BP 104/65
[2022-01-28] MEDS: ONDANSETRON 4 MG/2 ML VIAL IVP PRN (20:17)
--- NOTE | 2022-01-28 20:28 | NUR ---
ALL DUE MEDS GIVEN. NO ADVERSE REACTION NOTED. PT DENIES PAIN. PT COMPLAIN OF NAUSEA. GAVE PRN ZOFRAN PER MD ORDER. NO OTHER COMPLAINS. WILL CONTINUE TO MONITOR THE PT.
--- NOTE | 2022-01-29 01:00 | NUR ---
PT ASLEEP,ALL SAFETY MEASURES IN PLACE,NO DISTRESS NOTED
--- NOTE | 2022-01-29 01:22 | NUR ---
PT IS SLEEPING COMFORTABLE IN BED. PT IS NOT IN ANY ACUTE RESPIRATORY DISTRESS. BREATHING EVEN AND UNLABORED. IVF RUNNING PER MD ORDER. CALL LIGHT WITHIN REACH. ALL SAFETY MEASURES TAKEN. WILL CONTINUE TO MONITOR THE PT.
--- NOTE | 2022-01-29 02:15 | NUR ---
FEEDING WAS CHANGED. PT IS NOT IN ANY ACUTE DISTRESS. DENIES PAIN. IVF RUNNING PER MD ORDER. BED AT THE LOWEST POSITION. HEAD OF BED RAISED. WILL CONTINUE TO MONITOR THE PT. Addendum: 01/29/22 at 0257 by Milo Anthony RN WRONG PT
[2022-01-29] MEDS: NACL 0.9% 1,000 ML IV SCH ×2 (03:07→16:05)
--- NOTE | 2022-01-29 03:55 | NUR ---
PT IS AWAKE. VSS. PT DENIES ANY PAIN. PT HAS NO COMPLAINS AT THIS TIME. IVF RUNNING PER MD ORDER. FC STILL DRAINING WITH NO ISSUES. PT HAS NO BM SO FAR. WILL CONTINUE TO MONITOR THE PT.
[2022-01-29 04:00] VITALS: BP 113/62
--- NOTE | 2022-01-29 05:41 | NUR ---
FC DRAINED. 750 OUTPUT. PT CURRENTLY DENIES ANY PAIN. HAS NO COMPLAINS. WILL CONTINUE TO MONITOR THE PT.
[2022-01-29 05:53] LABS: ALBUMIN 3.2 g/dL (3.4-5.0); ANION GAP 12.3 (8-16); ASPARTATE AMINOTRANSFERASE 18 U/L (15-37); CHLORIDE 109 mmol/L (98-107); CREATININE 1.1 mg/dL (0.6-1.3); GLUCOSE 94 mg/dL (74-106); MAGNESIUM 2.1 mg/dL (1.8-2.4); POTASSIUM 4.3 mmol/L (3.5-5.1); SODIUM SERUM 143 mmol/L (136-145); TOTAL BILIRUBIN 0.4 mg/dL (0.0-1.0); UREA NITROGEN, BLOOD 22 mg/dL (7-18)
--- NOTE | 2022-01-29 07:07 | NUR ---
ENDORSED PT TO DAY SHIFT RN FOR CONTINUITY OF CARE. PT IS STABLE.
--- NOTE | 2022-01-29 07:26 | NUR ---
GOT REPORT FROM THE NIGHT NURSE, PT AWAKE IN BED.[id number]
[2022-01-29 08:00] VITALS: BP 124/74
[2022-01-29] MEDS: MORPHINE SULFATE 4 MG/ML SYR IVP PRN ×2 (08:29→18:43)
--- NOTE | 2022-01-29 08:56 | NUR ---
PATIENT HAS BEEN SCREENED AND CATEGORIZED MODERATE NUTRITION RISK. PATIENT WILL BE SEEN WITHIN 3-5 [address] OF [address]ION. QAS[address] LIU [address]
[2022-01-29] MEDS: DOCUSATE SODIUM 100 MG GELCAP PO SCH (09:47)
[2022-01-29 09:51] LABS: BASOPHILS % (AUTO) 0.6 % (0.0-2.0); EOSINOPHILS # (AUTO) 0.4 K/uL (0-0.4); EOSINOPHILS % (AUTO) 4.7 % (0.0-4.0); HEMATOCRIT 37.4 % (36-52); HEMOGLOBIN 12.3 g/dL (12.0-18.0); LYMPHOCYTES # (AUTO) 2.6 K/uL (2.0-11.5); MEAN CORPUSCULAR HEMOGLOBIN 28 pg (27-31); MEAN CORPUSCULAR HGB CONC 33 g/dL (33-37); MEAN CORPUSCULAR VOLUME 85.1 fL (80-94); MONOCYTES # (AUTO) 0.8 K/uL (0.8-1.0); MONOCYTES % (AUTO) 9.2 % (1.7-9.3); NEUTROPHILS # (AUTO) 4.6 K/uL (1.8-7.7); NEUTROPHILS % (AUTO) 54.5 % (42.2-75.2); PLATELET COUNT (AUTO) 222 K/uL (140-450); RED CELL DISTRIBUTION WIDTH 16.8 % (11.6-13.7); WHITE BLOOD COUNT (AUTO) 8.5 K/uL (4.8-10.8)
[2022-01-29 12:00] VITALS: BP 124/74
[2022-01-29 16:00] VITALS: BP 124/72
--- NOTE | 2022-01-29 19:45 | NUR ---
RECEIVED PT FROM AM NURSE FOR CONTINUITY OF CARE.PT IS STABLE
[2022-01-29 20:00] VITALS: BP 124/72
--- NOTE | 2022-01-30 01:00 | NUR ---
PT ASLEEP,ALL SAFETY MEASURES IN PLACE,NO DISTRESS NOTED
[2022-01-30] MEDS: MORPHINE SULFATE 4 MG/ML SYR IVP PRN ×2 (01:05→01:07)
[2022-01-30] MEDS: ONDANSETRON 4 MG/2 ML VIAL IVP PRN (01:06)
--- NOTE | 2022-01-30 03:00 | NUR ---
ASSISTED PATIENT TO THE BATHROOM,NO SOB NOTED
[2022-01-30] MEDS: NACL 0.9% 1,000 ML IV SCH (03:53)
[2022-01-30 04:00] VITALS: BP 120/61
[2022-01-30 05:40] LABS: BASOPHILS % (AUTO) 0.5 % (0.0-2.0); EOSINOPHILS # (AUTO) 0.4 K/uL (0-0.4); EOSINOPHILS % (AUTO) 4.5 % (0.0-4.0); HEMATOCRIT 36.3 % (36-52); HEMOGLOBIN 11.8 g/dL (12.0-18.0); LYMPHOCYTES % (AUTO) 23.1 % (20.5-51.1); MEAN CORPUSCULAR HEMOGLOBIN 28 pg (27-31); MEAN CORPUSCULAR HGB CONC 33 g/dL (33-37); MEAN CORPUSCULAR VOLUME 86.1 fL (80-94); MONOCYTES # (AUTO) 0.7 K/uL (0.8-1.0); MONOCYTES % (AUTO) 8.7 % (1.7-9.3); NEUTROPHILS # (AUTO) 5.4 K/uL (1.8-7.7); NEUTROPHILS % (AUTO) 63.2 % (42.2-75.2); PLATELET COUNT (AUTO) 209 K/uL (140-450); RED BLOOD CELL COUNT(AUTO) 4.21 MIL/uL (4.20-6.10); RED CELL DISTRIBUTION WIDTH 16.8 % (11.6-13.7); WHITE BLOOD COUNT (AUTO) 8.6 K/uL (4.8-10.8)
[2022-01-30 05:45] LABS: ALBUMIN 3.5 g/dL (3.4-5.0); ANION GAP 9.7 (8-16); ASPARTATE AMINOTRANSFERASE 21 U/L (15-37); CARBON DIOXIDE 28.4 mmol/L (21-32); CHLORIDE 107 mmol/L (98-107); GLUCOSE 93 mg/dL (74-106); MAGNESIUM 2.1 mg/dL (1.8-2.4); POTASSIUM 4.1 mmol/L (3.5-5.1); SODIUM SERUM 141 mmol/L (136-145); TOTAL BILIRUBIN 0.3 mg/dL (0.0-1.0); UREA NITROGEN, BLOOD 19 mg/dL (7-18)
--- NOTE | 2022-01-30 06:00 | NUR ---
PATIENT IS AWAKE, NO COMPLAIN OF PAIN OR SOB NOTED
--- NOTE | 2022-01-30 07:10 | NUR ---
GOT REPORT FROM NIGHT NURSE PT AWAKE SAYS HE MIGHT DISCHARGE TODAY.JOSE
--- NOTE | 2022-01-30 07:17 | NUR ---
ENDORSED PT TO AM NURSE FOR CONTINUITY OF CARE.PT IS STABLE
[2022-01-30 08:00] VITALS: BP 121/66
[2022-01-30] MEDS: DOCUSATE SODIUM 100 MG GELCAP PO SCH (09:14)
[2022-01-30 13:07] VITALS: BP 121/66
[2022-01-30] MEDS ORDERED: CEPH-588 PO (13:10)
[2022-01-30 13:13] VITALS: BP 121/66
--- NOTE | 2022-01-30 15:15 | NUR ---
PT DISCHARGED TO [facility]. DISCHARGE INSTRUCTION IS GIVEN, IV AND ID BAND REMOVED, OUT WITH W\C TO THE [facility].[id number]
== END 2022-01-30 15:54 | disposition home or self-care (01) | DRG 698 ==
LOC: MED 10:16 → MTU 14:24
PROVIDERS: ADMIT Hospitalist; ATTEND Hospitalist
DX: T83.011A Breakdown (mechanical) of indwelling urethral catheter, initial encounter (principal); A41.9 Sepsis, unspecified organism; N39.0 Urinary tract infection, site not specified; N40.0 Benign prostatic hyperplasia without lower urinary tract symptoms; Y83.8 Other surgical procedures as the cause of abnormal reaction of the patient, or of later complication, without mention of misadventure at the time of the procedure; I11.0 Hypertensive heart disease with heart failure; J44.9 Chronic obstructive pulmonary disease, unspecified; Z20.822 Contact with and (suspected) exposure to COVID-19; I25.10 Atherosclerotic heart disease of native coronary artery without angina pectoris; I50.9 Heart failure, unspecified; Z95.0 Presence of cardiac pacemaker; Z79.82 Long term (current) use of aspirin; Z79.899 Other long term (current) drug therapy; Y92.89 Other specified places as the place of occurrence of the external cause
CPT/HCPCS: 36415; 71045; 80053; 81001; 83605; 83735; 83880; 84484; 85025; 87040; 87086; 93005; 96365; 96375; 99291; J0696; J1644; J2270; J2405; J7060; Q0092

== ENCOUNTER 2022-02-22 16:51 | Emergency (ER) | payer MEDICARE, MEDICAID ==
[~2022-02-22] VITALS: Ht 175.3 cm; Wt 86.2 kg
[~2022-02-22 16:51] MED LIST changes: +CEPH-588 PO
[2022-02-22 16:58] VITALS: BP 124/76
--- NOTE | 2022-02-22 17:00 | NUR ---
Pt taken to bed 10 via gurney by EMS
--- NOTE | 2022-02-22 17:05 | NUR ---
71 y/o male biba from [facility] w/ c/o rectal bleeding x yesterday evening. Denies trauma or injury. Reports constipation x 1 week. LBM today, reports hard stool with streaks of blood observed, reports difficulty/straining to pass stool. Denies cp, fever, chills, diarrhea, etoh/drug use. Also c/o nausea without vomiting and sob due to hx of COPD. Does not use Oyxgen at home. Took Tylenol this morning without relief. Abdomen is soft and nontender, bowel sounds active. Placed in gown and on hall monitor, hob elevated to facilitate breathing. pmh: pacemaker, copd nka
--- NOTE | 2022-02-22 17:10 | NUR ---
lab at beside
[2022-02-22 17:18] LABS: BASOPHILS # (AUTO) 0.1 K/uL (0.00-0.22); BASOPHILS % (AUTO) 0.9 % (0.0-2.0); EOSINOPHILS # (AUTO) 0.4 K/uL (0-0.4); EOSINOPHILS % (AUTO) 5.4 % (0.0-4.0); HEMATOCRIT 36.7 % (36-52); LYMPHOCYTES # (AUTO) 2.1 K/uL (2.0-11.5); LYMPHOCYTES % (AUTO) 30.7 % (20.5-51.1); MEAN CORPUSCULAR HEMOGLOBIN 28 pg (27-31); MEAN CORPUSCULAR HGB CONC 33 g/dL (33-37); MEAN CORPUSCULAR VOLUME 86.1 fL (80-94); MONOCYTES # (AUTO) 0.7 K/uL (0.8-1.0); MONOCYTES % (AUTO) 9.8 % (1.7-9.3); NEUTROPHILS # (AUTO) 3.6 K/uL (1.8-7.7); NEUTROPHILS % (AUTO) 53.2 % (42.2-75.2); PLATELET COUNT (AUTO) 250 K/uL (140-450); RED BLOOD CELL COUNT(AUTO) 4.26 MIL/uL (4.20-6.10); RED CELL DISTRIBUTION WIDTH 16.4 % (11.6-13.7); WHITE BLOOD COUNT (AUTO) 6.8 K/uL (4.8-10.8)
--- NOTE | 2022-02-22 17:26 | NUR ---
Dr Morgan at bedside for evaluation
--- NOTE | 2022-02-22 17:36 | NUR ---
phone call placed to Vito Patterson will fax face sheet + packet.
[2022-02-22 17:58] LABS: ALBUMIN 3.7 g/dL (3.4-5.0); ANION GAP 11.5 (8-16); ASPARTATE AMINOTRANSFERASE 19 U/L (15-37); CARBON DIOXIDE 27.4 mmol/L (21-32); CHLORIDE 107 mmol/L (98-107); CREATININE 1.2 mg/dL (0.6-1.3); GLUCOSE 154 mg/dL (74-106); POTASSIUM 3.9 mmol/L (3.5-5.1); SODIUM SERUM 142 mmol/L (136-145); TOTAL BILIRUBIN 0.2 mg/dL (0.0-1.0); UREA NITROGEN, BLOOD 15 mg/dL (7-18)
[2022-02-22] MEDS ORDERED: CALC625T27 PO (18:32)
--- NOTE | 2022-02-22 19:16 | NUR ---
Pt report given to Cali. Transfer of care at this time.
--- NOTE | 2022-02-22 19:20 | NUR ---
HANDOFF RECEIVED FROM YAN SERRATO AND ASSUMED CARE OF PATIENT AT THIS TIME.
--- NOTE | 2022-02-22 19:58 | NUR ---
PATIENT CONFIRMED THAT STAFF AT [facility] WILL LET HIM INSIDE ONCE HE ARRIVES THIS EVENING.
[2022-02-22 19:59] VITALS: BP 112/68
== END 2022-02-22 18:30 | disposition home or self-care (01) ==
LOC: MED 16:51
DX: K62.5 Hemorrhage of anus and rectum (principal); I25.10 Atherosclerotic heart disease of native coronary artery without angina pectoris; N18.9 Chronic kidney disease, unspecified
CPT/HCPCS: 36415; 80053; 85025; 85610; 85730; 99283

== ENCOUNTER 2022-03-09 18:16 | Emergency (ER) | payer MEDICARE, MEDICAID ==
[~2022-03-09] VITALS: Ht 175.3 cm; Wt 86.2 kg
[~2022-03-09 18:16] MED LIST changes: +CALC625T27 PO
[2022-03-09 18:42] VITALS: BP 118/100
--- NOTE | 2022-03-09 18:55 | NUR ---
PT AMBULATED TO BED 11
--- NOTE | 2022-03-09 19:35 | NUR ---
71 YO M BIB SELF WITH C/C OF REPLACEMENT OF F/C. PT STATES HE HAS A HX OF BPH AND REQUIRES TO HAVE A CATHETER IN. PT REPORTS DISCOMFORT WITH CATHETER THAT COMES AND GOES. PT STATES HE HAS BEEN REACHING OUT TO UROLOGIST FOR CATHETER REPLACEMENT AND HASWNT RECIEVED A CALL BACK. HX:BPH, CHF, PACEMAKER NKA
--- NOTE | 2022-03-09 19:43 | NUR ---
OLD F/C REMOVED, CATH INTACT. NEW CATHETER PLACED PER ERMD ORDERS USING STERILE TECHNIQUE. 18F, CLEAR 55 CC URINE RETURN. PT TOLERATED PROCEDURE. PT VOCALIZED IMMEDIATE RELIEF.
[2022-03-09 19:51] VITALS: BP 118/100
--- NOTE | 2022-03-09 19:51 | NUR ---
Patient discharged with v/s stable. Written and verbal after care instructions given and explained. Patient verbalized understanding. Ambulatory with steady gait. All questions addressed prior to discharge. Advised to follow up with PMD.
== END 2022-03-09 19:51 | disposition home or self-care (01) ==
LOC: MED 18:16
DX: R33.9 Retention of urine, unspecified (principal); N40.0 Benign prostatic hyperplasia without lower urinary tract symptoms; Z46.6 Encounter for fitting and adjustment of urinary device; Z79.899 Other long term (current) drug therapy; Z95.0 Presence of cardiac pacemaker; Z79.82 Long term (current) use of aspirin
CPT/HCPCS: 51702; 99284

== ENCOUNTER 2022-07-25 10:18 | Emergency (ER) | payer MEDICARE, MEDICAID ==
[~2022-07-25] VITALS: Ht 175.3 cm; Wt 90.7 kg
[2022-07-25 10:23] VITALS: BP 130/100
--- NOTE | 2022-07-25 11:15 | NUR ---
NOTED: FOUL SMELLING URINE. PULLED OUT OLD F/C, INSERTED 16 HUNGARIAN WITH BAG. COLLECTED URINE AND SENT FOR UA.
[2022-07-25 11:28] LABS: APPEARANCE,URINE SL CLOUDY (CLEAR); BILIRUBIN,URINE 1+ (NEGATIVE); BLOOD, URINE TRACE-I (NEGATIVE); COLOR,URINE AMBER (YELLOW); LEUKOCYTE ESTERASE ,URINE 2+ (NEGATIVE); NITRITE, URINE NEGATIVE (NEGATIVE); PH,URINE 8.5 (5.0-9.0); UGLUCOSE NEGATIVE (NEGATIVE)
[2022-07-25 11:41] LABS: RBC,URINE 0-5 /HPF (0-5)
[2022-07-25 11:42] LABS: CALCIUM OXALATE CRYSTALS,UR 0-10 /HPF (None Seen); OTHER CASTS, URINE None Seen /LPF (None Seen); TRIPLE PHOSPHATE CRYSTAL,UR 0-10 /HPF (None Seen)
[2022-07-25] MEDS ORDERED: IBUP-2213 PO (12:02)
[2022-07-25] MEDS ORDERED: CIPR500T4 PO (12:02)
[2022-07-25 12:31] VITALS: BP 134/84
--- NOTE | 2022-07-25 12:31 | NUR ---
Patient discharged with v/s stable. Written and verbal after care instructions given and explained. Patient alert, oriented and verbalized understanding of instructions. Wheel Chair Assisted with to home. All questions addressed prior to discharge. ID band removed. Patient advised to follow up with PMD. Rx of CIPRO, IBUPROFEN given. Patient educated on indication of medication including possible reaction and side effects. Opportunity to ask questions provided and answered.
== END 2022-07-25 12:31 | disposition home or self-care (01) ==
LOC: MED 10:18
DX: T83.091A Other mechanical complication of indwelling urethral catheter, initial encounter (principal); N39.0 Urinary tract infection, site not specified; Z79.82 Long term (current) use of aspirin; Z90.49 Acquired absence of other specified parts of digestive tract; Z95.0 Presence of cardiac pacemaker; Z79.899 Other long term (current) drug therapy; Y84.6 Urinary catheterization as the cause of abnormal reaction of the patient, or of later complication, without mention of misadventure at the time of the procedure; Y92.89 Other specified places as the place of occurrence of the external cause
CPT/HCPCS: 51702; 81001; 87086; 99284

== ENCOUNTER 2022-07-27 11:17 | Emergency (ER) | payer OTHER, MEDICAID ==
[~2022-07-27] VITALS: Ht 175.3 cm; Wt 86.2 kg
[~2022-07-27 11:17] MED LIST changes: +CIPR500T4 PO; +IBUP-2213 PO
--- NOTE | 2022-07-27 11:25 | NUR ---
Patient wheelchair assisted to bed 7.
[2022-07-27 11:28] VITALS: BP 127/80
--- NOTE | 2022-07-27 11:50 | NUR ---
f# 16 FR Xie catheter with 30 ml utilizing sterile technique. Immediate return of 100 ml yellow urine noted. Bedside drainage bag placed below level of bladder. Urine sample collected and sent to lab. Pt tolerated procedure well.
--- NOTE | 2022-07-27 12:10 | NUR ---
71 y/o male bib self with c/o whitten catheter coming out in the middle of the night when he was asleep. Patient is unsure how it came out. Patient has 5/10 penile pain. Denies fevers, chills or SOB. Medical History: HTN, CHF, Pacemaker, Arthritis NKDA
--- NOTE | 2022-07-27 12:14 | NUR ---
Lab at bedside.
[2022-07-27 12:43] LABS: APPEARANCE,URINE CLEAR (CLEAR); BILIRUBIN,URINE NEGATIVE (NEGATIVE); BLOOD, URINE 2+ (NEGATIVE); COLOR,URINE YELLOW (YELLOW); LEUKOCYTE ESTERASE ,URINE 2+ (NEGATIVE); NITRITE, URINE NEGATIVE (NEGATIVE); UGLUCOSE NEGATIVE (NEGATIVE)
[2022-07-27 12:54] LABS: ALBUMIN 3.4 g/dL (3.4-5.0); ANION GAP 13.2 (8-16); ASPARTATE AMINOTRANSFERASE 48 U/L (15-37); CARBON DIOXIDE 28.8 mmol/L (21-32); CHLORIDE 103 mmol/L (98-107); CREATININE 1.5 mg/dL (0.6-1.3); GLUCOSE 140 mg/dL (74-106); SODIUM SERUM 141 mmol/L (136-145); TOTAL BILIRUBIN 0.4 mg/dL (0.0-1.0); UREA NITROGEN, BLOOD 24 mg/dL (7-18)
[2022-07-27 13:22] LABS: RBC,URINE TOO NUMEROUS TO COUN /HPF (0-5)
[2022-07-27 13:23] LABS: TRICHOMONAS,URINE None Seen /HPF (None Seen); WBC,URINE TOO MANY TO COUNT /HPF (0-5); YEAST,URINE None Seen /HPF (None Seen)
[2022-07-27] MEDS ORDERED: CEFP200T20 PO (13:32)
--- NOTE | 2022-07-27 13:52 | NUR ---
Patient discharged with v/s stable. Written and verbal after care instructions given and explained. Patient verbalized understanding. Wheel Chair Assisted with . All questions addressed prior to discharge. Advised to follow up with PMD.
== END 2022-07-27 13:52 | disposition home or self-care (01) ==
LOC: MED 11:17
DX: N39.0 Urinary tract infection, site not specified (principal); I25.10 Atherosclerotic heart disease of native coronary artery without angina pectoris; N18.9 Chronic kidney disease, unspecified; Z46.6 Encounter for fitting and adjustment of urinary device
CPT/HCPCS: 36415; 51701; 80053; 81001; 99284

== ENCOUNTER 2024-01-24 06:29 | Emergency (ER) | payer MEDICARE, OTHER ==
[~2024-01-24] VITALS: Ht 172.7 cm; Wt 95.3 kg
[~2024-01-24 06:29] MED LIST changes: +CEFP200T20 PO; -RIFA300C49 PO; +RIFA300C84 PO
[2024-01-24 06:55] VITALS: BP 108/58; PULSE 109; RESP 17; TEMP 98.6; O2SAT 93
[2024-01-24 07:57] VITALS: BP 123/78; PULSE 85; RESP 17; TEMP 98.3; O2SAT 96
== END 2024-01-24 07:57 | disposition home or self-care (01) ==
LOC: MED 06:29
DX: T83.028A Displacement of other urinary catheter, initial encounter (principal); I10 Essential (primary) hypertension; E78.5 Hyperlipidemia, unspecified; G89.29 Other chronic pain; M54.9 Dorsalgia, unspecified; Z95.0 Presence of cardiac pacemaker; Z86.79 Personal history of other diseases of the circulatory system; Z79.82 Long term (current) use of aspirin; Z79.1 Long term (current) use of non-steroidal anti-inflammatories (NSAID); Z79.899 Other long term (current) drug therapy; Z79.2 Long term (current) use of antibiotics
CPT/HCPCS: 51702; 99284

== ENCOUNTER 2024-02-12 09:13 | Emergency (ER) | payer MEDICARE, OTHER ==
[~2024-02-12] VITALS: Ht 175.3 cm; Wt 101.2 kg
[2024-02-12 09:28] VITALS: BP 160/105; PULSE 101; RESP 20; TEMP 97.8; O2SAT 92
[2024-02-12 10:27] LABS: APPEARANCE,URINE CLOUDY (CLEAR); BILIRUBIN,URINE NEGATIVE (NEGATIVE); BLOOD, URINE 3+ (NEGATIVE); COLOR,URINE YELLOW (YELLOW); LEUKOCYTE ESTERASE ,URINE 3+ (NEGATIVE); NITRITE, URINE POSITIVE (NEGATIVE); PH,URINE 8.5 (5.0-9.0); PROTEIN,URINE 2+ (NEGATIVE); UGLUCOSE NEGATIVE (NEGATIVE); UROBILINOGEN,URINE 0.2 EU/dL (0.2 - 1)
[2024-02-12 10:44] LABS: BACTERIA,URINE >30 (MANY) /HPF (None Seen); MUCUS,URINE 1+ /LPF (None Seen); RBC,URINE 20-50 /HPF (0-5); SQUAMOUS EPITHELIAL CELL,UR 0-3 (FEW) /LPF (0-3 (FEW)); WBC,URINE 16-25 (MOD) /HPF (0-5)
[2024-02-12] MEDS ORDERED: CIPR500T4 PO (10:52)
[2024-02-12 11:50] VITALS: BP 131/79; PULSE 94; RESP 20; TEMP 36.55848; O2SAT 94
== END 2024-02-12 11:50 | disposition home or self-care (01) ==
LOC: MED 09:13
DX: T83.098A Other mechanical complication of other urinary catheter, initial encounter (principal); R19.7 Diarrhea, unspecified; N39.0 Urinary tract infection, site not specified; Z95.0 Presence of cardiac pacemaker; Z87.448 Personal history of other diseases of urinary system; Z79.899 Other long term (current) drug therapy; Z79.82 Long term (current) use of aspirin; Y84.6 Urinary catheterization as the cause of abnormal reaction of the patient, or of later complication, without mention of misadventure at the time of the procedure
CPT/HCPCS: 51702; 81001; 87086; 87186; 99284